=== PATIENT | male | born 1955 | race Caucasian/White ===

== ENCOUNTER 2016-12-05 09:57 | Emergency (ER) | payer OTHER ==
--- NOTE | 2016-12-05 10:06 | UCPHY ---
H & P Patient Type: New Time Seen by Provider: 12/05/16 10:05 HPI/ROS: CHIEF COMPLAINT: Chest pain HISTORY OF PRESENT ILLNESS: The patient presents to the ED or urgent care for evaluation of a 1 month history of protracted chest pain. The patient has had some left anterior chest pain since a fall skiing 4 weeks ago. The patient is concerned that he has not had complete resolution of his symptoms. The patient does report his symptoms are worsened with positional changes specifically when laying on his left side. He has no increasing chest pain with exertion. The patient denies pleuritic chest pain. The patient denies additional complaints. The patient does have a past medical history no worthy for anxiety. The patient has no history of coronary artery disease. REVIEW OF SYSTEMS: A comprehensive 10 point review of systems is otherwise negative aside from elements mentioned in the history of present illness. Source: Patient Exam Limitations: No limitations - Medical/Surgical History PMH: Past medical history: Noncontributory - Family History Significant Family History: No pertinent family hx - Social History Smoking Status: Never smoked - Physical Exam Exam: General Appearance: Alert, no distress Head: Atraumatic Eyes: Pupils equal, round, reactive ENT, Mouth: No hemotympanum, no oral trauma Neck: Nontender, trachea midline Respiratory: Tenderness to palpation left anterior chest wall, no subcutaneous emphysema, lungs clear to auscultation bilaterally Cardiovascular: Regular rate and rhythm Abdomen: Abdomen is soft and nontender, pelvis stable Skin: No lacerations, No abrasion Back: No midline T/L/S pain Extremities: Nontender, full range of motion Neurological: A&Ox3, normal motor function, normal sensory exam Constitutional: Initial Vital Signs Temperature (C) 37.0 C 12/05/16 10:13 Heart Rate 61 12/05/16 10:13 Respiratory Rate 16 12/05/16 10:13 Blood Pressure 142/94 H 12/05/16 10:13 O2 Sat (%) 98 12/05/16 10:13 O2 Delivery Mode Room Air Allergies/Adverse Reactions: No Known Allergies Allergy (Unverified 12/05/16 10:13) Home Medications: Medication Instructions Recorded NK [No Known Home Meds] 12/05/16 Medical Decision Making - Diagnostics EKG Interpretation: EKG: Complete interpretation has been separately recorded in the [facility]. Summary impression: Sinus rhythm, no acute ischemic changes Imaging Results: Imaging Impressions Chest X-Ray 12/05/16 10:13 Impression: No acute pulmonary disease. Chest x-ray PA lateral: Images reviewed by myself, negative for rib fracture, pneumothorax or hemothorax. No explanation for traumatic chest pain noted. Imaging: I viewed and interpreted images myself ED Course/Re-evaluation: The patient presents to the ED for evaluation of 4 weeks of nonexertional chest pain following a fall. The patient does have reproducible tenderness to palpation in his left anterior chest wall. The patient's vital signs are noted to be stable. The patient's EKG demonstrates no evidence of ischemia. I note the patient does have equal pulses in all 4 extremities. The patient's EKG is within normal limits. The patient's troponin is normal. His chest x-ray demonstrates no evidence of rib fracture, pneumothorax or hemothorax. Discussion: The patient presents to the ED with 4 weeks of ongoing musculoskeletal pain following a fall skiing. This point time I believe he is experiencing a prolonged recovery. The patient has nothing to suggest acute coronary syndrome based upon his history and physical examination and workup in the urgent care. I do feel the patient can continue to use NSAIDs. I would like him to follow up with his primary care provider for any ongoing symptoms. The patient will be discharged home with customary aftercare instructions and return precautions. Differential Diagnosis: Differential diagnosis considered includes rib fracture, pneumothorax, hemothorax, pericarditis, myocardial infarction - Data Points Laboratory Results: 12/05/16 10:30 Troponin I < 0.012 ng/mL ng/mL (0-0.034) Departure - Departure Disposition: Home, Routine, Self-Care Clinical Impression: Chest wall pain Condition: Good Instructions: Costochondritis (ED) Additional Instructions: 1. Take Ibuprofen or Motrin 600 mg by mouth three times a day. 2. Please follow up with your primary care provider for any ongoing symptoms. 3. Please return to the ED or urgent care for worsening symptoms, exertional chest pain, difficulty breathing or other concerns. Referrals: Brandon Staton MD [Medical Doctor] - As per Instructions - PQRS PQRS Measurement: NA
[2016-12-05 10:15] VITALS: TEMP 98.6
--- NOTE | 2016-12-05 10:23 | CPEKG ---
Heart Rate: 60 RR Interval: 1000 P-R Interval: 160 QRSD Interval: 86 QT Interval: 416 QTC Interval: 416 P [place]: 67 QRS [place]: 72 T Wave [place]: 65 EKG Severity - NORMAL ECG - EKG Impression: SINUS RHYTHM Electronically Signed By: Pepe Huntley 05-Dec-2016 11:02:50
[2016-12-05 11:30] VITALS: PULSE 63
[2016-12-05 12:11] VITALS: BP 142/92; RESP 15; O2SAT 96
== END 2016-12-05 11:32 | disposition home or self-care (01) ==
LOC: CED 09:57
DX: R07.89 Other chest pain (principal)
CPT/HCPCS: 71020-PO; 84484-PO; 93010-PO; 99205-PO; G0463-PO

== ENCOUNTER 2018-02-17 19:07 | Emergency (ER) | payer OTHER ==
[2018-02-17] MEDS ORDERED: NS 500 ML IV ONE (19:27)
--- NOTE | 2018-02-17 19:51 | CPEKG ---
Heart Rate: 66 RR Interval: 909 P-R Interval: 164 QRSD Interval: 88 QT Interval: 396 QTC Interval: 415 P [place]: 49 QRS [place]: 59 T Wave [place]: 49 EKG Severity - NORMAL ECG - EKG Impression: SINUS RHYTHM Electronically Signed By: Peterson Petersen 17-Feb-2018 20:08:00
--- NOTE | 2018-02-17 20:04 | EDPHY ---
H & P Stated Complaint: dizziness, numbness in hands Time Seen by Provider: 02/17/18 19:27 HPI/ROS: This patient complains of hand paresthesias for 3-5 years but he feels that the intensity has increased significantly over the past 2-3 days right hand more than left hand primarily in the fingers. He reports associated dizziness that feels like intermittent slight lightheadedness. He feels that the dizziness diminishes when he drinks sports drinks and eats bananas. He also feels the tingling and diminishes when he does this anxiety wonders if he may have a low potassium or some other electrolyte problem that is contributing to his symptoms. He is also quite concerned about stroke because he recently had a friend who suffered a stroke. His girlfriend brought him in by private vehicle for further evaluation of the symptoms. Review symptoms: Constitutional: No fevers. No other constitutional symptoms HEENT: No recent URI symptoms or other complaints new line neuro: He reports a 1/10 headache at the vertex region similar to prior headaches that he attributes to anxiety. No exacerbating factors is been present for the last few hours. Neuro: No confusion. No focal weakness. No difficulty reading or speaking. No vision changes. Pulmonary: No shortness of breath. No coughing. Cardiovascular: No chest pain or heart palpitations. No leg swelling or pain GI: No abdominal pain, nausea vomiting or diarrhea : No complaints new line integumentary: No skin rash Psychiatric: Mild anxiety regarding his friends stroke. No other complaints Complete review of symptoms otherwise negative. Source: Patient Exam Limitations: No limitations - Personal History Current Tetanus/Diphtheria Vaccine: Yes - Medical/Surgical History PMH: Hypercholesterolemia Normal cardiac stress test in June He reports that he had a CT cardiogram with a low to medium calcium score within the last year. 1 concussion a few years ago evaluated in the emergency department after few days with a nonfocal exam with no neuro imaging at that time. Hx Asthma: No Hx Chronic Respiratory Disease: No Hx Diabetes: No Hx Cardiac Disease: No Hx Renal Disease: No Hx Cirrhosis: No Hx Alcoholism: No Hx HIV/AIDS: No Hx Splenectomy or Spleen Trauma: No Other PMH: chronic back pain. hernia repair x 3, right knee surgery - Social History Smoking Status: Never smoked Alcohol Use: Rarely (He averages 1 beer a week) Drug Use: None - Physical Exam Exam: Physical exam: Vital signs are normal General: Patient is in no acute distress. HEENT: Is no external evidence of trauma on exam. Eyes: Pupils are equal and reactive to light. Extraocular motions are intact. Optic fundi: Clear with no papilledema or hemorrhage. Nose atraumatic. Ears: Clear bilaterally with no hemotympanum. Oropharynx: No dental trauma or malocclusion. No intraoral lacerations. Eyes: Pupils are equal and reactive to light. Extraocular motions are intact. Optic fundi: Clear with no papilledema or hemorrhage. Lungs: Clear to auscultation bilaterally Neck: Supple no meningismus. Cardiac: Regular rate and rhythm no murmur gallop or rub. Abdomen: Soft nontender no organomegaly Neuro: GCS of 15. Cranial nerves II through XII intact. Cerebellar exam is normal as judged by symmetric rapid hand movements bilaterally. No pronator drift. No sensory or motor deficits are appreciated. No visual field deficits. NIH stroke scale of 0. Josefina-Hallpike test negative for vertigo or nystagmus left and right. Phalen's test and Tinel's test are negative bilateral wrists for any neuro symptoms. Initial differential diagnosis: Neuropathy-spinal versus metabolic versus idiopathic, anxiety, myocardial ischemia, tension headache. Based on exam- doubt central vertigo, peripheral vertigo or carpal tunnel syndrome Constitutional: Initial Vital Signs Temperature (C) 36.9 C 02/17/18 19:17 Heart Rate 68 02/17/18 19:17 Respiratory Rate 16 02/17/18 19:17 Blood Pressure 156/102 H 02/17/18 19:17 O2 Sat (%) 96 02/17/18 19:17 O2 Delivery Mode Room Air Allergies/Adverse Reactions: No Known Allergies Allergy (Unverified 12/05/16 10:13) Home Medications: Medication Instructions Recorded NK [No Known Home Meds] 12/05/16 Medical Decision Making - Diagnostics EKG Interpretation: 12 lead EKG performed at 7:49 p.m. Reveals sinus rhythm at 66 Intervals: Normal throughout [place]: Normal throughout ST segments: Normal throughout Overall assessment normal EKG ED Course/Re-evaluation: IV 1 L normal saline bolus Hand paresthesias spontaneously improved without intervention other than saline bolus Basic metabolic panel: Normal CBC: Normal Discussion: Patient here with dizziness of unclear etiology may be primarily anxiety. Paresthesias hands may be hyperventilation that he was not hyperventilating when he came in today. We ruled out any significant metabolic abnormalities with normal metabolic panel. No anemia. No evidence of carpal tunnel syndrome based on exam, no obvious neck radiculopathy based on exam, no evidence of focal [employer] deficits or other red flag findings. Based on lack of any focal neuro findings the chronicity of his paresthesias, did not feel compelled to pursue neuro imaging this patient I counseled him in some detail regarding this. Counseled patient regarding this encouraged follow up with Neurology as an outpatient for any ongoing symptoms. - Data Points Medications Given: Discontinued Medications Sodium Chloride (Ns) 500 mls @ 0 mls/hr IV EDNOW ONE; Wide Open PRN Reason: Protocol Stop: 02/17/18 19:28 Last Admin: 02/17/18 20:11 Dose: Not Given Sodium Chloride (Ns) 1,000 mls @ 0 mls/hr IV ONCE ONE PRN Reason: Wide Open Stop: 02/17/18 20:13 Last Admin: 02/17/18 20:12 Dose: 1,000 mls Point of Care Test Results: CBC CBC Collection Date 02/17/18 CBC Collection Time 19:33 WBC 6.4 RBC 5.32 HGB 16 HCT 48.9 PLT 283 Neut # 3.8 Neut 60.3 LYMPH # 2.2 LYMPH 34 Other WBC # 0.4 Other WBC 5.7 MCV 91.9 Departure - Departure Disposition: Home, Routine, Self-Care Clinical Impression: Paresthesia of hand, bilateral, Dizziness Condition: Good Instructions: Paresthesia (ED), Dizziness (ED) Additional Instructions: Diagnosis: Hand paresthesias 2. Dizziness You have no focal neuro deficits today that would suggest a stroke. Your EKG is normal. Your labs-blood count and chemistries including your kidney function and glucose are normal today. Plan: Continue your good hydration Consider follow up with Neurology for any ongoing symptoms Otherwise follow up with primary care physician Return emergency department for any significant worsening despite treatment plan Referrals: FELICIA HERR MD [Other] - As per Instructions Rolf Peterson MD [Medical Doctor] - As per Instructions
[2018-02-17] MEDS ORDERED: NS 1,000 ML IV ONE (20:12)
[2018-02-17 21:23] VITALS: BP 133/77
== END 2018-02-17 21:23 | disposition home or self-care (01) ==
LOC: CED 19:07
DX: R20.2 Paresthesia of skin (principal); R42 Dizziness and giddiness; E86.9 Volume depletion, unspecified
CPT/HCPCS: 80048-PO